=== PATIENT | female | born 1955 | race Caucasian/White ===

== ENCOUNTER 2018-07-03 05:11 | Inpatient (IN) ==
[2018-07-03] MEDS ORDERED: Sodium Chlor 0.9% Inj 40 ML, Bupivacaine Liposo PF 1.3% Inj 20 ML P-ARTICULR SCH ×2 (05:56)
[2018-07-03] MEDS ORDERED: Chlorhexidine 4% Topical 120 APPLIC/120 ML Bottle TOPICAL SCH (06:00)
[2018-07-03] MEDS ORDERED: TRANEXAMIC ACID IV.SIG SCH ×2 (06:00→09:00)
[2018-07-03] MEDS ORDERED: ceFAZolin 2 GM Premix Inj 2 GM/50 ML PIGGYBACK IV.SIG SCH (06:00)
[2018-07-03] MEDS ORDERED: Chlorhexidine Gluconate 2% 1 Pack (2 Cloths) TOPICAL ONE (06:00)
[2018-07-03] MEDS ORDERED: SODIUM CHLOR 0.9% IV.SIG SCH ×2 (06:00→09:00)
[2018-07-03] MEDS ORDERED: Sodium Chlor 0.9% Inj 500 ML IV.CONT ONE (06:00)
[2018-07-03] MEDS ORDERED: Metoprolol Tartrate 25 MG Tablet PO ONE (06:00)
[2018-07-03] MEDS ORDERED: fentaNYL Citrate Inj 100 MCG/2 ML Ampul ONE (06:21)
[2018-07-03] MEDS ORDERED: Propofol Inj 500 MG/50 ML Vial ONE (06:21)
[2018-07-03] MEDS ORDERED: Famotidine PF Inj 20 MG/2 ML Vial ONE (06:21)
[2018-07-03] MEDS ORDERED: Ketamine Inj 50 MG/5 ML Syringe IV.PUSH ONE (06:37)
[2018-07-03] MEDS ORDERED: Aluminum/Magnesium/Simethacone Susp 30 ML UDC PO PRN (06:56)
[2018-07-03] MEDS ORDERED: Acetaminophen 325 MG Tablet PO PRN (06:56)
[2018-07-03] MEDS ORDERED: Tranexamic Acid Inj 0 MG in Sodium Chlor 0.9% Inj 100 ML IV.SIG ONE (06:56)
[2018-07-03] MEDS ORDERED: Post-op Orders (for Pharmacy) OTHER STA (06:56)
[2018-07-03] MEDS ORDERED: Morphine Sulfate Inj 2 MG/ML Vial IV.PUSH PRN (06:56)
[2018-07-03] MEDS ORDERED: Bisacodyl 10 MG Supp RECTAL PRN (06:56)
[2018-07-03] MEDS ORDERED: [UNRECOGNIZED DRUG - OTHER] PO SCH (09:00)
[2018-07-03] MEDS ORDERED: GLUCOSAM CHON MSM1 C MANG BOSW PO SCH (09:00)
[2018-07-03] MEDS ORDERED: VIT C E ZN COPPR LUTEIN ZEAXAN PO SCH (09:00)
--- NOTE | 2018-07-03 09:28 | P.OP ---
- Preoperative Diagnosis (1) Primary osteoarthritis of right hip - Postoperative Diagnosis (1) Primary osteoarthritis of right hip Date of procedure: 07/03/18 Procedure: Right total hip arthroplasty using Lori prosthesis. Anesthesia: local (Exparel), spinal Surgeon: Bruce Conway MD Field Aide: NEEMA Rojas Estimated blood loss (mL): 250 Pathology: none sent Operation and Findings: Indications and Findings: This 62-year-old woman has had left hip pain beginning about 8 years ago and progressively worsening at this point so that she has significant limitation of activities and nonresponsive to conservative measures. She complains of right groin and buttock pain with abnormality in gait, inability to do ambulation beyond short distances and difficulty with activities of daily living. Treatment has included analgesics, anti- inflammatory agents, exercise, intra-articular corticosteroids and physical findings showed limited range of motion with tenderness on motion in the right hip. She had an antalgic gait. X-rays show loss of articular cartilage to bone -on-bone with acetabular and femoral osteophytes and evidence of lateral femoral acetabular component impingement. Operative findings: There is severe osteoarthritis in the right hip with loss of articular cartilage to bpxm-[id number]-irod, subchondral sclerosis and multiple osteophytes. Implants: The acetabular component was a Trident 2 cluster shell size 52 mm outer diameter with a 36 mm inner diameter 0 degree X3 polyethylene liner. The femoral component was an Accolade 2 size 3 x 127 degrees. The femoral head was Biolox Delta size 36 mm outer diameter with -5 mm offset. The patient was brought to the clean air operating suite and a spinal anesthetic was administered. The patient was positioned into a lateral position with the operative hip up on a Nexvet lateral positioner. The hip and lower extremity were prepped with alcohol, Hibiclens and ChloraPrep and draped in the usual manner with the hip draped free. Patient received prophylactic antibiotics preoperatively. The patient also received tranexamic acid preoperatively. An appropriate timeout procedure was carried out. An incision was made from the midportion of the greater trochanter proximally and posteriorly paralleling the fibers of the gluteus moon. The incision was deepened through subcutaneous tissues down to the fascia miguelito and gluteus fascia. The gluteus fascia was then split longitudinally in line with its fibers up to the upper portion of the fascia miguelito. With wound towels in place, the Charnley retractor was inserted. The sciatic nerve was identified and protected throughout the procedure. Dissection was then carried down to the interval between the gluteus minimus and the piriformis. A retractor was inserted. The piriformis and obturator conjoined tendon was released from the greater trochanter and reflected off the capsule. A capsulotomy was made longitudinally along the femoral neck to the base of the femoral neck and then curved distally along the posterior aspect of the greater trochanter. The hip was internally rotated. Further release of the external rotators was carried out exposing the hip. The hip was dislocated. The femoral neck was transected at the appropriate level using the oscillating saw placement of appropriate retractors. The femoral head was removed. Preparation of the femur was initiated with a box osteotome followed by a curet to identify the medullary canal. Broaching was then initiated with the size 0 broach and went in 1 size increments up to size 3. The broach handle was removed. The femoral neck was then trimmed with a calcar planar. Attention was then directed to the acetabulum. Soft tissues were debrided from the acetabulum. Retractors were placed about the acetabulum. Reaming was then initiated with the 45 millimeter reamer and went in 1-2 mm increments up to the 52 millimeter diameter reamer. A trial reduction with the 52 millimeter trial prosthesis was carried out. When this was deemed to be appropriate, the trial prosthesis was removed. The acetabulum was irrigated and cleaned. The actual prosthesis as noted above was impacted into place and seated appropriately. Drill holes were made and sounded. Appropriate sized screws were inserted to stabilize the acetabulum further. The liner as noted above was inserted into the acetabular shell and impacted into place. Osteophytes were trimmed from the acetabulum. Local anesthetic was administered throughout the area of the acetabulum and anterior aspect of the femur. The trial neck was placed on the broach for the above-noted prosthesis. The femoral head trial was placed onto the femoral neck . A trial reduction was carried out. Adjustment was made as needed. The stability, leg length and motion were excellent. There was no pistoning. The trial prosthesis was removed. The broach was removed. The femoral component was impacted into the medullary canal of the femur after irrigation and suctioning. When this was appropriately seated a trial reduction was again carried out with the trial prosthesis. There was no pistoning. The leg length was appropriate. The stability and motion were excellent. The trial prosthesis was then removed. After cleaning and drying the trunion of the femoral component, the above-noted femoral head was impacted onto the trunnion. The hip was reduced. The stability and mobility were again checked along with leg lengths as noted above. The hip was positioned appropriately and closure commenced after the remainder of the local anesthetic was injected throughout the hip. The external rotators and capsule were repaired with #1 Vicryl interrupted transosseous sutures with a Krakw technique to reattach the external rotators and capsule to the posterior aspect of the greater trochanter. The capsule itself on the superior aspect was closed with #1 Vicryl interrupted [id number] sutures. The sciatic nerve was inspected. The fascia miguelito and gluteus fascia were repaired with #1 Vicryl interrupted [id number] sutures. The subcutaneous tissues were closed with 2-0 Vicryl interrupted simple sutures with buried knots. The skin was closed with a continuous subcuticular closure of 4-0 Monocryl. The wound was then approximated with Dermabond Prineo. A silver impregnated dressing was applied to the hip. A knee immobilizer was applied to the leg. The patient was transferred from the operating room to the recovery room in satisfactory condition having tolerated the procedure well. Counts are correct. Specimens: None. Estimated blood loss: 250
--- NOTE | 2018-07-03 09:30 | P.DCO ---
- Physical Therapy Physical Therapy: Gait training Hip: Total hip, Protocol: Right, Posterior hip precautions, Progress to weight bearing Canvas Knee Splint: When in bed with 2 pillows between thighs Right Lower Extremity Weight Bearing: Weight bearing as tolerated Right Lower Extremity Range of Motion: Active ROM - Nursing Nursing: Dressing changes Dressing changes: Daily dressing change, Other Additional instructions: Do not remove Dermabond Prineo (the tape that is directly on the wound). Leave the Optifoam dressing in place for 7 days. After this, daily dressing changes will be done taking care to avoid injuring or removing the Dermabond Prineo. - Certification Need for Home Health services: I have seen patient Mary Barrientos on 07/03/18. My clinical findings support the need for the requested home health care services because: Need for Home Health Services: Limited ability to care for self, High risk of falls Homebound Certification: I certify that my clinical findings support that this patient is homebound because: Homebound Certification: Post-op weakness, Unsteady gait/balance, Unsafe to leave home unassisted
[2018-07-03] MEDS ORDERED: *Meperidine Inj 25 MG/ML Vial PERIprocedural Use ONLY ONE (10:07)
[2018-07-03] MEDS: Ketorolac Inj 30 MG/ML (IVP) Vial IV.PUSH SCH ×3 (10:34→20:14)
[2018-07-03] MEDS: Senna/Docusate Sodium 8.6/50 MG Tablet PO SCH ×2 (10:43→21:17)
[2018-07-03] MEDS: Ascorbic Acid 500 MG Tablet PO SCH (10:43)
[2018-07-03] MEDS: Multivitamin/Minerals Therapeutic Tablet PO SCH (10:43)
--- NOTE | 2018-07-03 10:50 | XR ---
EXAM DATE: 07/03/2018 10:44 AM EST AGE/SEX: 62 years / Female INDICATIONS: Post-op total right hip arthroplasty. CLINICAL DATA: This is the patient's initial encounter. Patient reports that signs and symptoms have been present for 1 day and indicates a pain score of 6/10. MEDICAL/SURGICAL HISTORY: None. None. COMPARISON: No prior exams available for comparison. FINDINGS: There is a right hip prosthesis in place. The acetabular component is secured by a single screw into the superior acetabulum. The prosthetic components appear well placed. CONCLUSION: Successful placement of a right hip prosthesis. Electronically signed by: Gildardo Wolf MD 07/03/2018 10:48 AM EST
--- NOTE | 2018-07-03 15:02 | P.CONIM ---
History of Present Illness Service: [facility] Consult date: 07/03/18 Requesting Physician: Bruce Conway Reason for Consult: medical management Primary Care Provider: Fela Rodriguez MD Chief Complaint: right hip osteoarthritis s/p right total hip arthroplasty History of Present Illness: Patient is a very pleasant 62 year old female with a past medical history significant for osteoarthritis of the right hip that continued to progressively become worse despite exhausting conservative treatment options. She presented to the hospital today to undergo an elective right total hip arthroplasty per Orthopedic Surgeon Dr Conway. Patient is being seen post-operatively. She is sitting upright in bed and smiling. Her is at the bedside. Patient reports no pain to her right hip at the present time. Her dressing is clean, dry and intact. She denies nausea or vomiting. Patient does not take any prescription home medications, only vitamin supplementations. Her pre surgery lab work from 06/25/2018 was reviewed and noted to be grossly unremarkable. Her vital signs are B/P 95/53, HR 57, O2 sat 100% on room air and temp 97.5F. Repeat H/H has been ordered for am. Patient will remain on telemetry monitoring overnight. Patient denies shortness of breath, chest discomfort, fevers or chills. Review of Systems ROS Unobtainable: other (except as documented all other systems have been reviewed and negative) [facility] Medical History Medical History Arthritis (Acute) History of radius fracture (Acute) Macular degeneration (Acute) Surgical History Surgical History History of cosmetic surgery (Acute) Hx of oral surgery (Acute) Family History Family History Father Diabetes Mother Gastroparesis Breast cancer Social History Social History Substance History: No History of Abuse Second Hand Smoke Exposure: Yes Smoking Status: Light tobacco smoker Tobacco Type: Cigarettes How Often Do You Have a Drink Containing Alcohol: 4 or more times a week Recent Travel in [facility] within the Last 8 Weeks: No Recent Out of Country Travel within the Last 8 Weeks: No Immunization History Tetanus Immunization: <5 Years Hx Influenza Vaccine This Season: No Medications and Allergies Allergies Allergy/AdvReac Type Severity Reaction Status Date / Time No Known Allergies Allergy Verified 07/03/18 05:58 Home Medications Medication Instructions Recorded Confirmed Type L. gasseri-B. bifidum-B longum 1 cap PO DAILY 06/25/18 07/03/[address] [[facility]] ascorbic acid (vitamin C) [Vitamin 500 mg PO DAILY 06/25/18 07/03/18 History C] toxyixqn-giog-smx3-C-mahnaz-bosw 1 tab PO BID 06/25/18 07/03/18 History [Osteo Bi-Flex Triple Strength] vk-psy-gimtb acid-lutein [Centrum 1 tab PO DAILY 06/25/18 07/03/18 History Silver] vit C,A-Fb-fubry-lutein-zeaxan 1 tab PO DAILY 06/25/18 07/03/18 History [PreserVision AREDS-2] vitamin E 400 unit PO DAILY 06/25/18 07/03/18 History Active Medications: Active Medications Acetaminophen (Tylenol) 650 mg PO Q6H PRN PRN Reason: Pain Less Than 3 On Scale Hydrocodone Bitart/Acetaminophen ([place] 7.5/325) 1 tab PO Q4H PRN PRN Reason: PAIN SCALE 4 TO 6 MODERATE Hydrocodone Bitart/Acetaminophen ([place] 7.5/325) 2 tab PO Q6H PRN PRN Reason: PAIN SCALE 7 TO 10 SEVERE Last Admin: 07/03/18 10:35 Dose: 2 tab Al Hydrox/Mg Hydrox/Simethicone (Mag-Al Plus Susp Liq) 30 ml PO Q6H PRN PRN Reason: INDIGESTION Al Hydroxide/Mg Hydroxide (Milk Of Magnesia Liq) 30 ml PO BID PRN PRN Reason: Mild Constipation Ascorbic Acid (Vitamin C) 500 mg PO DAILY [facility] Last Admin: 07/03/18 10:43 Dose: Not Given Aspirin (Aspirin Chew) 81 mg PO BID [facility] Last Admin: 07/03/18 10:34 Dose: 81 mg Bisacodyl (Dulcolax Supp) 10 mg RECTAL DAILY PRN PRN Reason: SEVERE CONSITIPATION Chlorhexidine Gluconate (Hibiclens 4% Topical) 1 applicatio TOPICAL ONCE [facility] Stop: 07/07/18 05:59 Last Admin: 07/03/18 05:40 Dose: 1 applicatio Sodium Chloride 40 ml/ (Bupivacaine Liposome 20 ml) 0 ml P-ARTICULR ONCE [facility] Stop: 07/03/18 21:00 Last Admin: 07/03/18 07:44 Dose: 60 bag Diphenhydramine HCl (Benadryl) 25 mg PO Q6H PRN PRN Reason: ITCHING Lactated Ringer's (Lr 1000 Ml Inj) 1,000 mls @ 30 mls/hr IV.CONT .Q24H ONE Stop: 07/04/18 05:59 Last Admin: 07/03/18 06:00 Dose: 30 mls/hr Sodium Chloride (Ns Inj) 500 mls @ 30 mls/hr IV.CONT .[id number] ONE Stop: 07/03/18 22:39 Last Admin: 07/03/18 06:15 Dose: Not Given Cefazolin Sodium/Dextrose (Ancef 2 Gm Premix Inj) 2 gm in 50 mls @ 100 mls/hr IV.SIG ONCE [facility] Stop: 07/03/18 21:00 Last Infusion: 07/03/18 07:44 Dose: Infused Tranexamic Acid 611 mg/ Sodium (Chloride) 106.11 mls @ 200 mls/hr IV.SIG ONCE [facility] Stop: 07/03/18 21:00 Last Infusion: 07/03/18 07:44 Dose: Infused Tranexamic Acid 611 mg/ Sodium (Chloride) 106.11 mls @ 200 mls/hr IV.SIG ONCE [facility] Stop: 07/03/18 21:00 Last Infusion: 07/03/18 13:53 Dose: Infused Cefazolin Sodium 1,000 mg/ (Sodium Chloride) 100 mls @ 200 mls/hr IV.SIG Q6H [facility] Stop: 07/03/18 19:29 Lactated Ringer's (Lr 1000 Ml Inj) 1,000 mls @ 80 mls/hr IV.CONT .[id number] [facility] Last Admin: 07/03/18 10:40 Dose: 80 mls/hr Ketorolac Tromethamine (Toradol Inj) 15 mg IV.PUSH Q6H [facility] Stop: 07/05/18 01:01 Last Admin: 07/03/18 13:55 Dose: Not Given Lactulose (Lactulose Liq) 30 ml PO DAILY PRN PRN Reason: SEVERE CONSITIPATION Miscellaneous Information (Mis Nursing Information) 0 each OTHER UNSCH PRN PRN Reason: SEE LABEL COMMENTS Stop: 07/04/18 09:35 Morphine Sulfate (Morphine Inj) 2 mg IV.PUSH Q3H PRN PRN Reason: BREAKTHROUGH PAIN Multivitamins/Minerals (Theragran-M) 1 tab PO DAILY [facility] Last Admin: 07/03/18 10:43 Dose: Not Given Ondansetron HCl (Zofran Odt) 4 mg PO Q6H PRN PRN Reason: NAUSEA OR VOMITING Senna/Docusate Sodium (Laurie-Colace) 1 tab PO BID [facility] Last Admin: 07/03/18 10:43 Dose: Not Given Sennosides (Senokot) 17.2 mg PO BID PRN PRN Reason: Moderate Constipation Sodium Chloride (Ns Flush) 2 ml IV.FLUSH BID [facility] Last Admin: 07/03/18 13:52 Dose: Not Given Sodium Chloride (Ns Flush) 2 ml IV.FLUSH PRN PRN PRN Reason: FLUSH AFTER USING IV ACCESS Zolpidem Tartrate (Ambien) 5 mg PO HS PRN PRN Reason: INSOMNIA Physical Exam Vital signs: Last Vital Signs Temp 97.5 F L 07/03/18 11:44 Pulse 57 L 07/03/18 11:44 Resp 16 07/03/18 11:44 BP 95/53 L 07/03/18 11:44 Pulse Ox 100 07/03/18 11:44 Intake & Output 07/01/18 07/02/18 07/03/18 07/04/18 06:59 06:59 06:59 06:59 Intake Total 1706.22 / 1706.22 Output Total 250 / 250 Balance 1456.22 / 1456.22 Weight 61.1 kg 61.1 kg Constitutional no acute distress and cooperative Routine HEENT Exam Head: Present normocephalic and atraumatic Eye: Present EOMI, PERRL and normal accommodation ENT: Present mucous membranes moist Routine Neck Exam Present supple, full ROM and trachea midline; Absent JVD Routine Chest/Breast/Axilla Exam Chest wall: Absent tenderness Routine Respiratory Exam Present CTA bilaterally; Absent accessory muscle use, respiratory distress and wheezes Routine Cardiovascular Exam Present RRR, S1 and S2; Absent murmur Routine Abdominal Exam Present soft; Absent tenderness and distended Routine Extremities Exam Present pulses intact; Absent cyanosis Detailed Lower Extremity Exam Hip: left: normal inspection and right: wound hip (s/p total hip arthroplasty, dressing clean, dry intact) and right: decreased ROM (s/p hip arthroplasty) Routine Skin Exam Present intact and normal turgor Routine Neurological Exam Present alert, oriented X3 and CN II-XII intact Routine Psychiatric Exam Present normal affect, cooperative, good insight and good judgment Results Imaging Impressions Hip X-Ray 07/03/18 06:55 CONCLUSION: Successful placement of a right hip prosthesis. ABG Impressions Hip X-Ray 07/03/18 06:55 CONCLUSION: Successful placement of a right hip prosthesis. Assessment and Plan (1) Status post total replacement of right hip: Code(s): Z96.641 - Presence of right artificial hip joint Status: Acute Plan Patient is a very pleasant 62 y/o female with a past medical history significant for osteoarthritis of right hip that continued to progressively and affecting her activities of daily living. She presented to the hospital for an elective right hip total arthroplasty. Severe osteoarthritis right hip s/p right total hip arthroplasty 07/03/18 -retail service specialist primary -post op orderes per primary team -pain meds PRN, IV fluids, abx -PT eval/treat -regular diet Elevated BUN with GFR of 66 -this was noted on pre-op blood work 06/25/18 -repeat BMP in am -continue IV fluids overnight MDM: self Code: Full GI ppx: PO intake DVT ppx: ASA 81 mg PO BID per Ortho
[2018-07-03] MEDS: ceFAZolin 1 GM Premix Inj 1 GM/50 ML FROZ.PIGGY IV.SIG SCH ×2 (16:22→21:17)
[2018-07-03] MEDS ORDERED: Zolpidem Tartrate 5 MG Tablet PO PRN (21:00)
[2018-07-04] MEDS: Ketorolac Inj 30 MG/ML (IVP) Vial IV.PUSH SCH ×4 (01:10→18:28)
[2018-07-04] MEDS: ceFAZolin 1 GM Premix Inj 1 GM/50 ML FROZ.PIGGY IV.SIG SCH (03:18)
[2018-07-04 04:59] LABS: Hematocrit 29.6 % (35.0-46.0); Hemoglobin 10.4 gm/dL (11.6-15.3)
[2018-07-04 05:26] LABS: Calcium 8.8 mg/dL (8.5-10.1); Carbon Dioxide 27.6 meq/L (21.0-32.0); Potassium 4.1 meq/L (3.5-5.1)
[2018-07-04] MEDS: Multivitamin/Minerals Therapeutic Tablet PO SCH ×2 (07:29→09:49)
[2018-07-04] MEDS: Ascorbic Acid 500 MG Tablet PO SCH ×2 (07:29→09:49)
[2018-07-04] MEDS: Senna/Docusate Sodium 8.6/50 MG Tablet PO SCH ×3 (07:29→20:26)
--- NOTE | 2018-07-04 07:37 | P.PNOP ---
Subjective Interval history: Postop day #1 She is doing well. She has minimal complaints related to the hip. She has been up to the bathroom. Physical therapy reports that the ambulation distance was 50 feet. Physical Exam Vital signs: Vital Signs 07/03/18 09:38 07/03/18 09:40 07/03/18 09:45 Temperature 97 F L 97 F L Pulse Rate 89 81 Respiratory Rate 19 22 Blood Pressure 106/68 108/71 Pulse Oximetry 100 100 07/03/18 10:00 07/03/18 10:15 07/03/18 10:30 Temperature Pulse Rate 60 56 L 55 L Respiratory Rate 20 18 14 Blood Pressure 119/55 L 101/55 L 101/57 L Pulse Oximetry 100 100 99 07/03/18 10:47 07/03/18 11:00 07/03/18 11:44 Temperature 97.5 F L 97.5 F L Pulse Rate 58 L 57 L Respiratory Rate 17 16 Blood Pressure 93/52 L 95/53 L Pulse Oximetry 100 100 100 07/03/18 12:00 07/03/18 16:00 07/03/18 19:30 Temperature 97.3 F L 97.9 F 97.6 F Pulse Rate 60 70 76 Respiratory Rate 18 16 18 Blood Pressure 97/54 L 112/56 L 93/50 L Pulse Oximetry 96 100 96 07/03/18 23:13 07/04/18 04:15 Temperature 98.5 F 98.4 F Pulse Rate 70 69 Respiratory Rate 18 17 Blood Pressure 103/56 L 117/55 L Pulse Oximetry 98 97 Intake & Output 07/03/18 07/04/18 07/04/18 18:59 06:59 18:59 Intake Total 1756.22 / 1756.22 530 / 530 Output Total 250 / 250 Balance 1506.22 / 1506.22 530 / 530 Weight 61.1 kg 65.3 kg Intake: IV 312.22 / 312.22 50 / 50 Cyklokapron Inj 611 MG In NS 212.22 / 212.22 Inj 100 ML @ 200 mls/hr IV.SIG ONCE [facility] Rx#:[id number] Ancef 1 GM Premix Inj 1 gm In 50 / 50 50 / 50 50 ml @ 100 mls/hr IV.SIG Q6H [facility] Rx#:[id number] Ancef 2 GM Premix Inj 2 gm In 50 / 50 50 ml @ 100 mls/hr IV.SIG ONCE [facility] Rx#:[id number] Oral 480 / 480 Anesthesia Amount 1444 / 1444 Output: Estimated Blood Loss 250 / 250 Other: # Voids 2 3 Date of Last Bowel Movement 07/03/18 # Bowel Movements 0 Narrative: She is resting comfortably, out of bed in the chair. Her dressing is dry and intact. Her neurovascular status is intact. Results - Labs CBC & Chem 7: 07/04/18 04:07 07/04/18 03:57 Laboratory Results - last 24 hr 07/04/18 07/04/18 03:57 04:07 Hgb 10.4 L Hct 29.6 L Sodium 140 Potassium 4.1 Chloride 106 Carbon Dioxide 27.6 Anion Gap 6 BUN 19 H Creatinine 0.93 Estimated GFR 61 L Random Glucose 115 H Calcium 8.8 - Imaging Impressions Hip X-Ray 07/03/18 06:55 CONCLUSION: Successful placement of a right hip prosthesis. - Procedures Right total hip arthroplasty using [place] prosthesis on 07/03/2018. Assessment and Plan - Ortho Post Op Day # 1 - Problem List (1) Status post total replacement of right hip Code(s): Z96.641 - Presence of right artificial hip joint Status: Acute - Assessment and Plan Condition: Good. Orthopedically stable. DVT prophylaxis: TEDs, aspirin, sequentials. Discharge plans: Home with home health care. An appointment was scheduled through the office. Prescriptions: [place] 7.5/325; Patient is having significant pain caused by a total hip arthroplasty which will last more than 3 days. Trial of Tylenol has not helped. I believe that it is medically necessary to treat patients pain because it is affecting patients ability to participate in postoperative rehabilitation and perform activities of daily living in a comfortable and efficient manner. I have checked the [employer] database prior to completing the prescription.
--- NOTE | 2018-07-04 08:04 | P.DS ---
Date of admission: 07/03/18 06:55 Primary care physician: Fela Rodriguez MD Attending physician on discharge: Bruce Trinh Anticipated date of discharge: 07/04/18 Brief History from admission: This 62-year-old woman has had long-standing pain in her right hip nonresponsive to conservative measures including anti-inflammatory agents, analgesics, exercises and activity modification. Physical findings showed limited range of motion with an [id number], subchondral sclerosis and osteophytes. DS: Diagnosis - Discharge Diagnosis (1) Status post total replacement of right hip Status: Acute Diagnosis: Principal (2) Primary osteoarthritis of right hip Status: Chronic Diagnosis: Principal DS: Medications - Discharge Medications Prescriptions: hydrocodone-acetaminophen 1 tab PO Q4H PRN 7 Days #42 tab PRN Reason: Pain, Severe DS: Summary Hospital Course: The patient was admitted as noted above. The above noted operative procedure was carried out that day. Preoperatively prophylactic antibiotics were administered Ancef according to protocol. These were continued postoperatively. The patient also received tranexamic acid to help with hemostasis according to protocol. In the postanesthesia care unit mechanical methods of DVT prophylaxis in the form of UYEN stockings and sequentials were initiated. Physical therapy was initiated on the day of surgery. On postoperative day #1 physical therapy continued. DVT prophylaxis with aspirin was initiated at this time. The patient continued physical therapy throughout the hospitalization. The distance walked and range of motion improved throughout the hospitalization. The patient was discharged on postoperative day 2 with the disposition being to home with home health care. An appointment for follow-up was made prior to admission. - Time Spent with Patient Total time spent providing and/or coordinating discharge services: Less than 30 minutes - Quality: VTE Deep Vein Thrombosis/Pulmonary Embolism Present on Admission: No Exam Vital signs: Vital Signs 07/03/18 09:38 07/03/18 09:40 07/03/18 09:45 Temperature 97 F L 97 F L Pulse Rate 89 81 Respiratory Rate 19 22 Blood Pressure 106/68 108/71 Pulse Oximetry 100 100 07/03/18 10:00 07/03/18 10:15 07/03/18 10:30 Temperature Pulse Rate 60 56 L 55 L Respiratory Rate 20 18 14 Blood Pressure 119/55 L 101/55 L 101/57 L Pulse Oximetry 100 100 99 07/03/18 10:47 07/03/18 11:00 07/03/18 11:44 Temperature 97.5 F L 97.5 F L Pulse Rate 58 L 57 L Respiratory Rate 17 16 Blood Pressure 93/52 L 95/53 L Pulse Oximetry 100 100 100 07/03/18 12:00 07/03/18 16:00 07/03/18 19:30 Temperature 97.3 F L 97.9 F 97.6 F Pulse Rate 60 70 76 Respiratory Rate 18 16 18 Blood Pressure 97/54 L 112/56 L 93/50 L Pulse Oximetry 96 100 96 07/03/18 23:13 07/04/18 04:15 Temperature 98.5 F 98.4 F Pulse Rate 70 69 Respiratory Rate 18 17 Blood Pressure 103/56 L 117/55 L Pulse Oximetry 98 97 Intake & Output 07/03/18 07/04/18 07/04/18 18:59 06:59 18:59 Intake Total 1756.22 / 1756.22 530 / 530 Output Total 250 / 250 Balance 1506.22 / 1506.22 530 / 530 Weight 61.1 kg 65.3 kg Intake: IV 312.22 / 312.22 50 / 50 Cyklokapron Inj 611 MG In NS 212.22 / 212.22 Inj 100 ML @ 200 mls/hr IV.SIG ONCE [facility] Rx#:[id number] Ancef 1 GM Premix Inj 1 gm In 50 / 50 50 / 50 50 ml @ 100 mls/hr IV.SIG Q6H [facility] Rx#:[id number] Ancef 2 GM Premix Inj 2 gm In 50 / 50 50 ml @ 100 mls/hr IV.SIG ONCE J[facility] Rx#:[id number] Oral 480 / 480 Anesthesia Amount 1444 / 1444 Output: Estimated Blood Loss 250 / 250 Other: # Voids 2 3 1 Date of Last Bowel Movement 07/03/18 07/03/18 # Bowel Movements 0 Narrative: She is resting comfortably, out of bed in the chair. Her dressing is dry and intact. Her neurovascular status is intact. Results Procedures completed during hospitalization: Right total hip arthroplasty using [place] prosthesis on 07/03/2018. Labs on day of discharge: Labs from last 24 hours 07/04/18 07/04/18 04:07 03:57 Hgb 10.4 L Hct 29.6 L Sodium 140 Potassium 4.1 Chloride 106 Carbon Dioxide 27.6 Anion Gap 6 BUN 19 H Creatinine 0.93 Estimated GFR 61 L Random Glucose 115 H Calcium 8.8 - Impressions ITS Impressions Hip X-Ray 07/03/18 06:55 CONCLUSION: Successful placement of a right hip prosthesis. Discharge Plan - Discharge Disposition Patient Disposition: W/Home Health Service - Discharge Condition Condition: Stable - Discharge Order Discharge Orders: Discharge Order (Routine); Ordered 07/04/18 Ordered By: Bruce Trinh Hospitalist Clear for Discharge (Routine); Ordered 07/04/18 Ordered By: Jaylen Donato - Discharge Details Anticipated Discharge Date: 07/05/18 - Physicians Team Primary Care Provider: Fela Rodriguez Attending Provider: Bruce Trinh Other Providers: Galen Peterson MD ; [facility] - Rxs /Orders / Referrals /Forms Prescriptions: New aspirin 81 mg Tablet,Chewable 81 mg PO BID RF: 0 hydrocodone-acetaminophen 7.5-325 mg Tablet 1 tab PO Q4H PRN (Reason: Pain, Severe) 7 Days Qty: 42 RF: 0 Continue ascorbic acid (vitamin C) [Vitamin C] 500 mg Tablet 500 mg PO DAILY yorrlary-ehob-avx4-C-mahnaz-bosw [Osteo Bi-Flex Triple Strength] 750 mg-644 mg - 30 mg-1 mg Tablet 1 tab PO BID L. gasseri-B. bifidum-B longum [[employer]] 1.5 billion cell Capsule 1 cap PO DAILY vs-gvb-qflwj acid-lutein [Centrum Silver] 400-250 mcg Tablet,Chewable 1 tab PO DAILY vit C,S-Lx-cneab-lutein-zeaxan [PreserVision AREDS-2] 135-526-44-1 mg-unit-mg -mg Capsule 1 tab PO DAILY vitamin E 400 unit Capsule 400 unit PO DAILY Referrals: Bruce Trinh MD [Physician] - See Instructions Fela Rodriguez MD [Primary Care Provider] - See Instructions - Discharge Instructions Patient Printed Instructions: Hydrocodone/Acetaminophen (By mouth), Aspirin ( By mouth), How to Choose and Use a Walker (GEN), Pain Management After Surgery ( DC), UYEN Hose (DC), Total Hip Replacement (DC) Additional Instructions: FOLLOW UP WITH DR. TRINH SCHEDULED IF NEED TO CHANGE CALL OFFICE. DO NOT DRIVE AND TAKE MEDICATIONS. DO NO TAKE PAIN MEDICATIONS AND DRINK ALCOHOL. DO NOT SMOKE. TAKE ALL MEDICATIONS PRESCRIBED.
--- NOTE | 2018-07-04 08:58 | P.PNIM ---
Subjective Interval history: Follow up status post right total hip replacement, elevated BUN Patient is sitting up in a recliner chair eating her breakfast. She reports pain 5/10 while sitting. She states she had minimal pain when lying down, however, her pain level increases with activity. BUN and GFR levels reviewed with patient and advised for continued outpatient follow up with PCP. Patient denies nausea or vomiting. She further denies shortness of breath, chest discomfort, lower extremity edema. Physical Exam Vital signs: Last Vital Signs Temp 98.4 F 07/04/18 04:15 Pulse 69 07/04/18 04:15 Resp 17 07/04/18 04:15 BP 117/55 L 07/04/18 04:15 Pulse Ox 97 07/04/18 04:15 Intake & Output 07/02/18 07/03/18 07/04/18 07/05/18 06:59 06:59 06:59 06:59 Intake Total 2286.22 / 2286.22 Output Total 250 / 250 Balance 2036.22 / 2036.22 Weight 61.1 kg 65.3 kg Narrative: GENERAL: no acute distress, well developed, well nourished SKIN: Warm and dry. HEAD: Normocephalic, atraumatic EYES: No scleral icterus. No injection or drainage. NECK: Supple, trachea midline. No JVD or lymphadenopathy. CARDIOVASCULAR: Regular rate and rhythm without murmurs, gallops, or rubs. RESPIRATORY: Breath sounds equal bilaterally. No accessory muscle use. GASTROINTESTINAL: Abdomen soft, non-tender, nondistended. MUSCULOSKELETAL: Decreased ROM RLE s/p arthroplasty, dressing clean, dry and intact Results Labs CBC & Chem 7: 07/04/18 04:07 07/04/18 03:57 Imaging Imaging: Impressions Hip X-Ray 07/03/18 06:55 CONCLUSION: Successful placement of a right hip prosthesis. Procedures Procedures: Right total hip arthroplasty using [place] prosthesis on 2017. Assessment and Plan Plan Patient is a very pleasant 62 y/o female with a past medical history significant for osteoarthritis of right hip that continued to progressively and affecting her activities of daily living. She presented to the hospital for an elective right hip total arthroplasty. Severe osteoarthritis right hip s/p right total hip arthroplasty 07/03/18 - evaluated 07/04/18, stable -court specialist primary -post op orders per primary team -pain meds PRN, IV fluids, abx -PT eval/treat -regular diet -H/H stable Elevated BUN with GFR of 61 - evaluated 07/04/18 -this was noted on pre-op blood work 06/25/18 -repeat BUN 19 with GFR 61, findings discussed with patient advised on outpatient f/u with PCP for continued evaluation and management Anemia, likely secondary to blood loss d/t recent surgery -H/H 10.4/29.6 -stable MDM: self Code: Full GI ppx: PO intake DVT ppx: ASA 81 mg PO BID per Ortho, SCD's Patient clear from medical standpoint. Thank you for the consultation. Progress Note: Quality VTE Deep Vein Thrombosis/Pulmonary Embolism Present on Admission: No
[2018-07-05] MEDS: Ketorolac Inj 30 MG/ML (IVP) Vial IV.PUSH SCH (01:25)
[2018-07-05 06:32] LABS: Hematocrit 31.5 % (35.0-46.0); Hemoglobin 10.6 gm/dL (11.6-15.3)
--- NOTE | 2018-07-05 07:40 | P.PNOP ---
Subjective Interval history: Postop day #2 She is doing well. She has minimal complaints related to her hip. She has significantly less pain. Physical therapy reports that the ambulation distance was 50 feet. Physical Exam Vital signs: Vital Signs 07/04/18 08:00 07/04/18 11:35 07/04/18 16:01 Temperature 97.9 F 98.5 F 98.2 F Pulse Rate 71 75 76 Respiratory Rate 17 17 17 Blood Pressure 95/52 L 124/58 L 108/51 L Pulse Oximetry 99 98 100 07/04/18 19:26 07/04/18 23:17 07/05/18 04:15 Temperature 98.5 F 98.2 F 98.3 F Pulse Rate 90 80 88 Respiratory Rate 18 18 18 Blood Pressure 118/56 L 102/58 L 116/59 L Pulse Oximetry 97 96 97 Intake & Output 07/04/18 07/05/18 07/05/18 18:59 06:59 18:59 Intake Total 480 / 480 Balance 480 / 480 Weight 65.3 kg Intake: Oral 480 / 480 Other: # Voids 1 3 Date of Last Bowel Movement 07/03/18 07/03/18 # Bowel Movements 0 Results - Labs CBC & Chem 7: 07/05/18 04:30 07/04/18 03:57 Laboratory Results - last 24 hr 07/05/18 04:30 Hgb 10.6 L Hct 31.5 L - Procedures Right total hip arthroplasty using [place] prosthesis on 07/03/2018. Assessment and Plan - Ortho Post Op Day # 2 - Assessment and Plan Condition: Good. Orthopedically stable. DVT prophylaxis: TEDs, aspirin, sequentials. Discharge plans: Home with home health care. An appointment was scheduled through the office. Prescriptions: [place] 7.5/325; Patient is having significant pain caused by a total hip arthroplasty which will last more than 3 days. Trial of Tylenol has not helped. I believe that it is medically necessary to treat patients pain because it is affecting patients ability to participate in postoperative rehabilitation and perform activities of daily living in a comfortable and efficient manner. I have checked the [facility] database prior to completing the prescription.
[2018-07-05 08:58] VITALS: RESP 17
[2018-07-05] MEDS: Multivitamin/Minerals Therapeutic Tablet PO SCH (10:24)
[2018-07-05] MEDS: Senna/Docusate Sodium 8.6/50 MG Tablet PO SCH (10:25)
[2018-07-05] MEDS: Ascorbic Acid 500 MG Tablet PO SCH (10:25)
--- NOTE | 2018-07-05 10:58 | P.PNIM ---
Subjective Interval history: Follow up status post right total hip replacement, elevated BUN Patient sitting upright in bed. She states her right lower extremity pain is improved today as she has been asking for her pain medications. No cough, fever or chills. Tolerating diet. (+) flatus, no BM yet post surgery. No shortness of breath or chest discomfort. Physical Exam Vital signs: Last Vital Signs Temp 97.8 F 07/05/18 08:00 Pulse 85 07/05/18 08:00 Resp 17 07/05/18 08:00 BP 117/56 L 07/05/18 08:00 Pulse Ox 96 07/05/18 08:00 Intake & Output 07/03/18 07/04/18 07/05/18 07/06/18 06:59 06:59 06:59 06:59 Intake Total 2336.22 / 2336.22 480 / 480 Output Total 250 / 250 Balance 2086.22 / 2086.22 480 / 480 Weight 61.1 kg 65.3 kg 65.3 kg Narrative: GENERAL: no acute distress, well developed, well nourished SKIN: Warm and dry. HEAD: Normocephalic, atraumatic EYES: No scleral icterus. No injection or drainage. NECK: Supple, trachea midline. No JVD or lymphadenopathy. CARDIOVASCULAR: Regular rate and rhythm without murmurs, gallops, or rubs. RESPIRATORY: Breath sounds equal bilaterally. No accessory muscle use. GASTROINTESTINAL: Abdomen soft, non-tender, nondistended. MUSCULOSKELETAL: No cyanosis. Decreased ROM RLE 2/2 right total hip arthroplasty. Dressing clean, dry and intact. Full ROM LLE. Results Labs CBC & Chem 7: 07/05/18 04:30 07/04/18 03:57 Procedures Procedures: Right total hip arthroplasty using [place] prosthesis on 2017. Assessment and Plan Plan Patient is a very pleasant 62 y/o female with a past medical history significant for osteoarthritis of right hip that continued to progressively and affecting her activities of daily living. She presented to the hospital for an elective right hip total arthroplasty. Severe osteoarthritis right hip s/p right total hip arthroplasty 07/03/18 - evaluated 07/05/18, stable -financial reporting specialist primary -post op orders per primary team -pain meds PRN, IV fluids, abx -PT eval/treat -regular diet -H/H stable -D/c home today per Ortho Elevated BUN with GFR of 61 - evaluated 07/05/18 -this was noted on pre-op blood work 06/25/18 -repeat BUN 19 with GFR 61, findings discussed with patient advised on outpatient f/u with PCP for continued evaluation and management Anemia, likely secondary to blood loss d/t recent surgery -H/H 10.4/29.6 -stable MDM: self Code: Full GI ppx: PO intake DVT ppx: ASA 81 mg PO BID per Ortho, SCD's Patient clear from medical standpoint. Thank you for the consultation. Progress Note: Quality VTE Deep Vein Thrombosis/Pulmonary Embolism Present on Admission: No
[2018-07-05 12:41] VITALS: BP 161/70; PULSE 66; TEMP 97.4; O2SAT 94
== END 2018-07-05 15:15 | disposition home health service (06) ==
LOC: HSDC 05:11 → HSDI 06:55 → EDSTATUS 07:00 → N06 12:04
PROVIDERS: ADMIT Orthopaedic Surgery; ATTEND Orthopaedic Surgery